=== PATIENT | male | born 1960 | race Caucasian/White ===

== ENCOUNTER → 2017-09-18 09:58 | Outpatient (CLI) | payer MEDICAID, SELFPAY ==
[2017-09-18 10:59] VITALS: PULSE 50
== END ==
PROVIDERS: Family Provider Internal Medicine Adolescent Medicine; PCP Internal Medicine Adolescent Medicine; Visit Provider Internal Medicine Adolescent Medicine
DX: R06.09 Other forms of dyspnea (principal)
CPT/HCPCS: 94060; 94640; 94726; 94729

== ENCOUNTER → 2018-01-12 16:19 | Outpatient (CLI) | payer MEDICAID, SELFPAY ==
[2018-01-12 16:40] LABS: Basophils # 0.1 K/mm3 (0-0.2); Basophils % 1.2 % (0.1-2.0); Eosinophils # 0.4 K/mm3 (0.0-0.4); Eosinophils % 3.5 % (0.1-12.0); Hematocrit 46.6 % (42.0-52.0); Hemoglobin 15.5 g/dL (14.1-18.0); Lymphocytes # 2.9 K/mm3 (0.7-4.5); Mean Corpuscular HGB Conc 33.3 g/dL (31.8-35.4); Mean Corpuscular Hemoglobin 28.4 pg (27.0-31.2); Mean Corpuscular Volume 85.2 fl (80-94); Mean Platelet Volume 7.2 fl (7.4-10.4); Monocytes # 0.8 K/mm3 (0.1-1.0); Monocytes % 7.5 % (1.7-9.3); Neutrophils # 6.3 K/mm3 (1.8-7.8); Neutrophils % 59.8 % (37.0-80.0); Platelet Count 310 K/mm3 (142-424); Red Blood Count 5.48 M/mm3 (4.60-6.20); Red Cell Distribution Width 14.5 % (11.5-17.5); White Blood Count 10.5 K/mm3 (4.8-10.8)
[2018-01-12 17:14] LABS: Erythrocyte Sedimentation Rate 19 mm/hr (0-20)
[2018-01-12 17:20] LABS: Alanine Aminotransferase 35 U/L (12-78); Albumin Level 3.8 gm/dL (3.4-5.0); Alkaline Phosphatase 124 U/L (46-116); Anion Gap 11.9 mEq/L (5-15); Aspartate Amino Transferase 21 U/L (15-37); Bilirubin,Total 0.6 mg/dL (0.2-1.0); Blood Urea Nitrogen 15 mg/dL (7-18); Calcium 9.9 mg/dL (8.5-10.1); Carbon Dioxide 31 mmol/L (21.0-32.0); Chloride 104 mmol/L (98-107); Chol/HDL Ratio 5.2 (1-3.5); Cholesterol 145 mg/dL (140-200); Creatinine,Serum 1.11 mg/dL (0.70-1.30); Estimated Glomerular Filt Rate 69 ml/min (>60); GFR (African American) 83 ML/MIN (>60); Globulin 3.7 gm/dl (1.3-3.2); Glucose 116 mg/dL (74-106); HDL Cholesterol 28 mg/dL (27-67); LDL Cholesterol 62 mg/dL (0-130); Potassium 4.9 mmoL/L (3.5-5.1); Sodium 142 mmol/L (136-145); Total Protein,Serum 7.5 gm/dL (6.4-8.2); Triglycerides 275 mg/dL (30-200); VLDL Cholesterol 55 mg/dL (0-40)
== END ==
PROVIDERS: Visit Provider Internal Medicine Adolescent Medicine
DX: I50.22 Chronic systolic (congestive) heart failure (principal); M10.9 Gout, unspecified
CPT/HCPCS: 36415; 80053; 80061; 84550; 85025; 85651

== ENCOUNTER → 2018-06-15 14:50 | Outpatient (CLI) | payer MEDICAID, SELFPAY ==
[2018-06-15 15:32] LABS: Basophils # 0.1 K/mm3 (0-0.2); Basophils % 1.1 % (0.1-2.0); Eosinophils # 0.2 K/mm3 (0.0-0.4); Eosinophils % 2.6 % (0.1-12.0); Hematocrit 43.1 % (42.0-52.0); Hemoglobin 14.1 g/dL (14.1-18.0); Lymphocytes # 2.6 K/mm3 (0.7-4.5); Lymphocytes % 30.1 K/mm3 (10-50); Mean Corpuscular HGB Conc 32.8 g/dL (31.8-35.4); Mean Corpuscular Hemoglobin 28.2 pg (27.0-31.2); Mean Corpuscular Volume 85.9 fl (80-94); Monocytes # 0.6 K/mm3 (0.1-1.0); Monocytes % 6.9 % (1.7-9.3); Neutrophils # 5.2 K/mm3 (1.8-7.8); Neutrophils % 59.2 % (37.0-80.0); Platelet Count 281 K/mm3 (142-424); Red Blood Count 5.02 M/mm3 (4.60-6.20); Red Cell Distribution Width 14.2 % (11.5-17.5); White Blood Count 8.8 K/mm3 (4.8-10.8)
[2018-06-15 16:13] LABS: Erythrocyte Sedimentation Rate 30 mm/hr (0-20)
[2018-06-15 16:23] LABS: Alanine Aminotransferase 32 U/L (12-78); Albumin Level 3.5 gm/dL (3.4-5.0); Alkaline Phosphatase 138 U/L (46-116); Anion Gap 10.6 mEq/L (5-15); Aspartate Amino Transferase 18 U/L (15-37); Bilirubin,Total 0.7 mg/dL (0.2-1.0); Blood Urea Nitrogen 14 mg/dL (7-18); Calcium 9.1 mg/dL (8.5-10.1); Carbon Dioxide 30 mmol/L (21.0-32.0); Chloride 100 mmol/L (98-107); Chol/HDL Ratio 4.6 (1-3.5); Cholesterol 115 mg/dL (140-200); Creatinine,Serum 1.15 mg/dL (0.70-1.30); Estimated Glomerular Filt Rate 66 ml/min (>60); GFR (African American) 80 ML/MIN (>60); Globulin 3.4 gm/dl (1.3-3.2); Glucose 258 mg/dL (74-106); HDL Cholesterol 25 mg/dL (27-67); LDL Cholesterol 54 mg/dL (0-130); Potassium 4.6 mmoL/L (3.5-5.1); Sodium 136 mmol/L (136-145); Total Protein,Serum 6.9 gm/dL (6.4-8.2); Triglycerides 179 mg/dL (30-200); Uric Acid 3.6 mg/dL (2.6-7.2); VLDL Cholesterol 36 mg/dL (0-40)
[2018-06-16 15:07] LABS: Hemoglobin A1C 9.8 % (0.0-7.0)
== END ==
PROVIDERS: PCP Internal Medicine Adolescent Medicine; Visit Provider Internal Medicine Adolescent Medicine
DX: I50.22 Chronic systolic (congestive) heart failure (principal); M10.9 Gout, unspecified; R73.9 Hyperglycemia, unspecified
CPT/HCPCS: 36415; 80053; 80061; 83036; 84550; 85025; 85651

== ENCOUNTER → 2018-09-07 15:12 | Outpatient (CLI) | payer MEDICAID, SELFPAY ==
[2018-09-07 15:50] LABS: Basophils % 0.4 % (0.1-2.0); Eosinophils # 0.3 K/mm3 (0.0-0.4); Hematocrit 44.5 % (42.0-52.0); Hemoglobin 14.2 g/dL (14.1-18.0); Lymphocytes # 2.5 K/mm3 (0.7-4.5); Lymphocytes % 27.4 % (10-50); Mean Corpuscular HGB Conc 31.9 g/dL (31.8-35.4); Mean Corpuscular Hemoglobin 28.2 pg (27.0-31.2); Mean Corpuscular Volume 88.3 fl (80-94); Mean Platelet Volume 6.8 fl (7.4-10.4); Monocytes # 0.7 K/mm3 (0.1-1.0); Neutrophils # 5.6 K/mm3 (1.8-7.8); Neutrophils % 61.2 % (37.0-80.0); Platelet Count 294 K/mm3 (142-424); Red Blood Count 5.04 M/mm3 (4.60-6.20); Red Cell Distribution Width 14.9 % (11.5-17.5); White Blood Count 9.1 K/mm3 (4.8-10.8)
[2018-09-07 19:10] LABS: Alanine Aminotransferase 39 U/L (12-78); Albumin Level 3.5 gm/dL (3.4-5.0); Alkaline Phosphatase 99 U/L (46-116); Anion Gap 13.7 mEq/L (5-15); Aspartate Amino Transferase 18 U/L (15-37); Bilirubin,Total 0.6 mg/dL (0.2-1.0); Blood Urea Nitrogen 15 mg/dL (7-18); Carbon Dioxide 29 mmol/L (21.0-32.0); Chloride 102 mmol/L (98-107); Chol/HDL Ratio 4.4 (1-3.5); Cholesterol 119 mg/dL (140-200); Creatinine,Serum 1.03 mg/dL (0.70-1.30); Estimated Glomerular Filt Rate 75 ml/min (>60); GFR (African American) 90 ML/MIN (>60); Globulin 3.5 gm/dl (1.3-3.2); Glucose 118 mg/dL (74-106); HDL Cholesterol 27 mg/dL (27-67); LDL Cholesterol 65 mg/dL (0-130); Potassium 4.7 mmoL/L (3.5-5.1); Sodium 140 mmol/L (136-145); Triglycerides 135 mg/dL (30-200); Uric Acid 4.7 mg/dL (2.6-7.2); VLDL Cholesterol 27 mg/dL (0-40)
[2018-09-07 21:01] LABS: Hemoglobin A1C 7.2 % (0.0-7.0)
== END ==
PROVIDERS: Visit Provider Internal Medicine Adolescent Medicine
DX: E11.69 Type 2 diabetes mellitus with other specified complication (principal); M10.9 Gout, unspecified
CPT/HCPCS: 36415; 80053; 80061; 83036; 84550; 85025

== ENCOUNTER → 2019-01-01 14:15 | Outpatient (CLI) | payer MEDICAID, SELFPAY ==
[2019-01-01 14:37] LABS: Basophils # 0.1 K/mm3 (0-0.2); Basophils % 0.9 % (0.1-2.0); Eosinophils # 0.2 K/mm3 (0.0-0.4); Eosinophils % 2.2 % (0.1-12.0); Hemoglobin 14.5 g/dL (14.1-18.0); Lymphocytes # 2.9 K/mm3 (0.7-4.5); Mean Corpuscular HGB Conc 32.9 g/dL (31.8-35.4); Mean Corpuscular Hemoglobin 28.8 pg (27.0-31.2); Mean Corpuscular Volume 87.4 fl (80-94); Mean Platelet Volume 7.2 fl (7.4-10.4); Monocytes # 0.8 K/mm3 (0.1-1.0); Monocytes % 7.8 % (1.7-9.3); Neutrophils # 5.7 K/mm3 (1.8-7.8); Neutrophils % 59.1 % (37.0-80.0); Platelet Count 251 K/mm3 (142-424); Red Blood Count 5.03 M/mm3 (4.60-6.20); Red Cell Distribution Width 14.8 % (11.5-17.5); White Blood Count 9.6 K/mm3 (4.8-10.8)
[2019-01-01 15:58] LABS: Erythrocyte Sedimentation Rate 11 mm/hr (0-20)
[2019-01-01 16:58] LABS: Alanine Aminotransferase 30 U/L (12-78); Albumin Level 3.6 gm/dL (3.4-5.0); Albumin/Globulin Ratio 1.1 (1.1-1.8); Alkaline Phosphatase 89 U/L (46-116); Anion Gap 12.1 mEq/L (5-15); Aspartate Amino Transferase 14 U/L (15-37); Bilirubin,Total 0.8 mg/dL (0.2-1.0); Blood Urea Nitrogen 12 mg/dL (7-18); Calcium 8.7 mg/dL (8.5-10.1); Carbon Dioxide 29 mmol/L (21.0-32.0); Chloride 102 mmol/L (98-107); Chol/HDL Ratio 3.1 (1-3.5); Cholesterol 117 mg/dL (140-200); Creatinine,Serum 1.08 mg/dL (0.70-1.30); Estimated Glomerular Filt Rate 70 ml/min (>60); GFR (African American) 85 ML/MIN (>60); Globulin 3.4 gm/dl (1.3-3.2); Glucose 107 mg/dL (74-106); HDL Cholesterol 38 mg/dL (27-67); LDL Cholesterol 52 mg/dL (0-130); Potassium 4.1 mmoL/L (3.5-5.1); Sodium 139 mmol/L (136-145); Triglycerides 135 mg/dL (30-200); Uric Acid 8.5 mg/dL (2.6-7.2); VLDL Cholesterol 27 mg/dL (0-40)
[2019-01-01 18:39] LABS: Hemoglobin A1C 6.5 % (0.0-7.0)
[2019-01-04 07:47] LABS: Microalbumin, Urine 38.4 ug/mL (Not Estab.)
== END ==
PROVIDERS: Visit Provider Internal Medicine Adolescent Medicine
DX: E11.69 Type 2 diabetes mellitus with other specified complication (principal); M10.9 Gout, unspecified; I50.22 Chronic systolic (congestive) heart failure
CPT/HCPCS: 36415; 80053; 80061; 82043; 83036; 84550; 85025; 85651

== ENCOUNTER → 2019-03-24 13:29 | Outpatient (CLI) | payer MEDICAID, SELFPAY ==
--- NOTE | 2019-03-24 13:31 | CT_ITS ---
CT lung screening EXAM: CT LUNG LOW DOSE WO CONTRAST HISTORY: 45 pack-year smoking history, asymptomatic for lung cancer ITS.REASON: CURRENT TOBACCO USE ORDERING PHYSICIAN: Rian Zuñiga MD PATIENT AGE: 58 years COMPARISON: None TECHNIQUE: The exam was performed on a GE Light Speed [address] scanner using 2.90 mGy CTDI. A low dose helical CT CHEST was performed on a multi-detector scanner. All CT scans at the facility use one or more dose reduction, viz: automated exposure control, ma/kV adjustment per patient size (including targeted exams where dose is matched to indication, i.e. head), or iterative reconstruction technique. The LDCT was performed in a facility that meets the criteria for the screening program. Data regarding this exam was submitted to A[employer] which is an approved registry. The order for this exam indicates that it came as a result of a lung cancer screening counseling shard decision-making visit that included all the elements required of such a visit including smoking cessation. The radiologist interpreting this exam meets the CMS criteria for the LDCT lung cancer screening program. The exam is reported using the Lung-RADS classification scale and reported to the ACR registry. NOTE: This study was performed for the specific purposes of lung cancer screening and is not an alternative to diagnostic chest CT. RADIATION DOSE: CTDI vol(CT dose Index-volume) = 2.90mG DLP (Dose Length Product) = 107.33 mGcm FINDINGS: COPD. Scattered fibrotic changes 5 mm noncalcified nodule right upper lobe #24 7 mm noncalcified nodule right lower lobe #53 4 mm subpleural nodule right lower lobe laterally #53 7 mm subpleural nodule left upper lobe laterally #20 13 mm well-circumscribed rounded soft tissue nodule left lower lobe posterior laterally #62. Nonspiculated. No calcification apparent Scattered small mediastinal nodes. No adenopathy IMPRESSION: 1. Lung RADS Category: 4A, mildly suspicious regarding multiple nodules including a 13 mm left lower lobe nodule. This nodule however has benign characteristics been well-circumscribed without evidence of spiculation the nodule is isointense without obvious internal fat but with some density measurements as low as -10 Hounsfield units. Consider PET CT for further evaluation 2. Other findings: No other pertinent findings evident RECOMMENDATIONS: 1. If the patient has old CTs of the abdomen or chest, recommend obtaining those for comparison. 2. If no old films are available then short follow-up in 3 months without and with contrast or PET CT would be recommended for further evaluation
== END ==
PROVIDERS: PCP Internal Medicine Adolescent Medicine; Visit Provider Internal Medicine Adolescent Medicine
DX: Z12.2 Encounter for screening for malignant neoplasm of respiratory organs (principal); Z87.891 Personal history of nicotine dependence

== ENCOUNTER → 2019-07-27 14:25 | Outpatient (CLI) | payer OTHER, SELFPAY ==
[2019-07-27 15:06] LABS: Basophils # 0.1 K/mm3 (0-0.2); Basophils % 1.4 % (0.1-2.0); Eosinophils # 0.2 K/mm3 (0.0-0.4); Eosinophils % 2.4 % (0.1-12.0); Hematocrit 42.4 % (42.0-52.0); Hemoglobin 13.9 g/dL (14.1-18.0); Lymphocytes # 2.6 K/mm3 (0.7-4.5); Lymphocytes % 29.7 % (10-50); Mean Corpuscular HGB Conc 32.8 g/dL (31.8-35.4); Mean Corpuscular Hemoglobin 28.6 pg (27.0-31.2); Mean Platelet Volume 7.6 fl (7.4-10.4); Monocytes # 0.6 K/mm3 (0.1-1.0); Monocytes % 7.1 % (1.7-9.3); Neutrophils # 5.1 K/mm3 (1.8-7.8); Neutrophils % 59.4 % (37.0-80.0); Platelet Count 310 K/mm3 (142-424); Red Blood Count 4.87 M/mm3 (4.60-6.20); Red Cell Distribution Width 14.5 % (11.5-17.5); White Blood Count 8.6 K/mm3 (4.8-10.8)
[2019-07-27 17:16] LABS: Hemoglobin A1C 6.6 % (0.0-7.0)
[2019-07-27 17:19] LABS: Alanine Aminotransferase 25 U/L (12-78); Albumin Level 3.4 gm/dL (3.4-5.0); Alkaline Phosphatase 86 U/L (46-116); Anion Gap 13.6 mEq/L (5-15); Aspartate Amino Transferase 17 U/L (15-37); Bilirubin,Total 0.6 mg/dL (0.2-1.0); Blood Urea Nitrogen 14 mg/dL (7-18); Calcium 8.7 mg/dL (8.5-10.1); Carbon Dioxide 28 mmol/L (21.0-32.0); Chloride 104 mmol/L (98-107); Chol/HDL Ratio 3.6 (1-3.5); Cholesterol 108 mg/dL (140-200); Creatinine,Serum 1.04 mg/dL (0.70-1.30); Estimated Glomerular Filt Rate 74 ml/min (>60); GFR (African American) 89 ML/MIN (>60); Globulin 3.3 gm/dl (1.3-3.2); Glucose 72 mg/dL (74-106); HDL Cholesterol 30 mg/dL (27-67); LDL Cholesterol 64 mg/dL (0-130); Potassium 4.6 mmoL/L (3.5-5.1); Sodium 141 mmol/L (136-145); Total Protein,Serum 6.7 gm/dL (6.4-8.2); Triglycerides 72 mg/dL (30-200); VLDL Cholesterol 14 mg/dL (0-40)
== END ==
PROVIDERS: Visit Provider Internal Medicine Adolescent Medicine
DX: E11.69 Type 2 diabetes mellitus with other specified complication (principal); I50.22 Chronic systolic (congestive) heart failure
CPT/HCPCS: 36415; 80053; 80061; 83036; 85025

== ENCOUNTER → 2020-06-28 12:50 | Outpatient (CLI) | payer OTHER, SELFPAY ==
--- NOTE | 2020-06-28 12:56 | CT_ITS ---
PROCEDURE: CT LUNG SCREENING CLINICAL INDICATION: H/ OF NICOTENE DEPENDANCE,,,PIPE SMOKER 37 year pipe smoking history COMPARISON: CT LUNGSCREEN CT lung screening from 03/24/2019 TECHNIQUE: The exam was performed on a GE Light Speed [address] scanner using 2.90 mGy CTDI. A low dose helical CT CHEST was performed on a multi-detector scanner. All CT scans at the facility use one or more dose reduction, viz: automated exposure control, ma/kV adjustment per patient size (including targeted exams where dose is matched to indication, i.e. head), or iterative reconstruction technique. The LDCT was performed in a facility that meets the criteria for the screening program. Data regarding this exam was submitted to ACR which is an approved registry. The order for this exam indicates that it came as a result of a lung cancer screening counseling shard decision-making visit that included all the elements required of such a visit including smoking cessation. The radiologist interpreting this exam meets the [facility] criteria for the LDCT lung cancer screening program. The exam is reported using the Lung-RADS classification scale and reported to the ACR registry. NOTE: This study was performed for the specific purposes of lung cancer screening and is not an alternative to diagnostic chest CT. RADIATION DOSE: CTDI vol(CT dose Index-volume) = 2.90mG DLP (Dose Length Product) = 120.89 mGcm FINDINGS: COPD changes with scattered areas of scarring. Subpleural opacities are unchanged. There is a 15 mm noncalcified nodule in the left lower lobe which is unchanged. Increasing atelectatic or fibrotic changes are present within the lingula. No new suspicious nodules evident. OTHER FINDINGS: Gynecomastia IMPRESSION: Lung-RADS Category 2 Benign Appearance or Behavior the Follow-up: Continue annual screening with LDCT in 12 months Dictated by: Taran Hernandez MD 07/09/2020 10:17 Taran Hernandez MD in [place] 07/09/2020 10:17
== END ==
PROVIDERS: PCP Internal Medicine Adolescent Medicine; Visit Provider Internal Medicine Adolescent Medicine
DX: Z87.891 Personal history of nicotine dependence (principal); Z12.2 Encounter for screening for malignant neoplasm of respiratory organs

== ENCOUNTER → 2023-04-02 08:20 | Outpatient (CLI) | payer OTHER, MEDICAID, SELFPAY ==
--- NOTE | 2023-04-02 08:25 | CT_ITS ---
FINAL REPORT CLINICAL HISTORY: H/O TOBACCO USE smokes 1 pk per day x 40yrs chf COMPARISON: 06/28/2020 FINDINGS: CT CHEST LOW DOSE SCREENING HISTORY: Screening exam for lung cancer. Current smoker, 40 pack year smoking history DOSE: CTDIvol: 2.9 mGy, DLP: 121.68 mGy*cm COMPARISON: 06/28/2020. TECHNIQUE: Axial CT without IV contrast administration using low dose protocol FINDINGS: No mediastinal or hilar masses are present. Mild emphysema is noted. There is a 5 mm nodule in the right upper lobe best seen on axial image #32, stable. There are several other small less than 5 mm in size nodules, also stable. The lateral left lower lobe 15 mm nodule noted on the prior chest CT is also stable. There is worsening lingular atelectasis versus scar since the prior exam. No pulmonary lesions are seen suspicious for neoplasm. No pleural or pericardial effusion is seen . Gallstones are present as well as a mild left adrenal gland nodule, likely adenoma, also stable. IMPRESSION: No change since prior CT of 2019, specifically no new nodules or masses are identified. LUNG RADS CATEGORY 1 RECOMMENDATION: 12 month LDCT follow up Reviewed, Interpreted and Dictated by Alex Bronson III, MD Transcribed by Ashley Carr Authenticated and [facility]
== END ==
PROVIDERS: PCP Internal Medicine Adolescent Medicine; Visit Provider Internal Medicine Adolescent Medicine
DX: Z87.891 Personal history of nicotine dependence (principal); Z12.2 Encounter for screening for malignant neoplasm of respiratory organs
CPT/HCPCS: 71271

== ENCOUNTER 2024-02-20 09:44 | Outpatient (CLI) | payer OTHER, SELFPAY ==
--- NOTE | 2024-02-20 09:48 | CT_ITS ---
FINAL REPORT CLINICAL HISTORY: H/O TOBACCO USE CURRENT SMOKER 1PPD X41 YEARS COMPARISON: 04/02/2023 FINDINGS: CT CHEST LOW DOSE SCREENING HISTORY: Screening exam for lung cancer. 63-year-old male, current smoker, 41 pack year smoking history DOSE: CTDIvol: 2.9 mGy, DLP: 108.12 mGy*cm COMPARISON: 04/02/2023. TECHNIQUE: Axial CT without IV contrast administration using low dose protocol FINDINGS: No acute lung disease is present . There is a cluster of tiny nodules in the posterior segment of the right upper lobe, unchanged since the prior CT. The dominant left lower lobe nodule measuring up to 15 mm in size, is also stable. Lingular scarring is present. There are 2 anterior right upper lobe nodules, the larger of which is best seen on image #26, and measures 4 mm in size. This nodule is new since the prior exam of 2022. No pleural or pericardial effusion is seen . No adenopathy or mass lesion is present . IMPRESSION: New 4 mm right upper lobe nodule, not present on the prior CT of 2022. Multiple other nodules remain stable. LUNG RADS CATEGORY 3 RECOMMENDATION: 6 month LDCT follow up Reviewed, Interpreted and Dictated by Ashley Cahvez MD Transcribed by Ashley Carr Authenticated and [facility]
== END 2024-02-20 23:59 | disposition home or self-care (01) ==
LOC: RAD 09:45
PROVIDERS: PCP Internal Medicine Adolescent Medicine; Visit Provider Internal Medicine Adolescent Medicine
DX: F17.210 Nicotine dependence, cigarettes, uncomplicated (principal)
CPT/HCPCS: 71271

== ENCOUNTER 2024-09-24 09:10 | Outpatient (CLI) | payer OTHER, SELFPAY ==
--- NOTE | 2024-09-24 09:12 | CT_ITS ---
FINAL REPORT TECHNIQUE: Axial CT images were obtained through the chest without contrast. Coronal and sagittal reconstruction images were also reviewed. This study was performed with techniques to keep radiation doses as low as reasonably achievable, (ALARA). Individualized dose reduction techniques using automated exposure control or adjustment of mA and/or kV according to the patient's size were employed. CLINICAL HISTORY: PULMONARY NODULE COMPARISON: 02/20/2024 FINDINGS: There is no mediastinal mass or adenopathy. 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 Redemonstrated is a 1.5 cm noncalcified nodule at the left base well-seen on image 61 of series 2. There is scarring noted in the lingula. The previously noted right upper lobe nodule is not well-seen on today's exam. There are some smaller nodules in the periphery of the right upper lobe seen on image 29 of series 2, which are entirely stable compared to previous exam. IMPRESSION: Pulmonary nodules as above. Recommend follow-up in 1 year. Reviewed, Interpreted and Dictated by Giorgi Ann MD Transcribed by Deann Dyson Authenticated and [facility]
== END 2024-09-24 23:59 | disposition home or self-care (01) ==
LOC: RAD 09:10
PROVIDERS: PCP Internal Medicine Adolescent Medicine; Visit Provider Internal Medicine Adolescent Medicine
DX: R91.1 Solitary pulmonary nodule (principal)
CPT/HCPCS: 71250